=== PATIENT | male | born 1950 | race Native Hawaiian/Other Pacific Islander ===

== ENCOUNTER 2020-06-09 06:49 | Observation (INO) ==
[2020-06-09] MEDS ORDERED: STAT IV Infusion **Titration per Protocol STA (07:02)
[2020-06-09] MEDS ORDERED: MAGNESIUM SULFATE / D5W 1 GM/100 ML BAG IV STA (07:07)
--- NOTE | 2020-06-09 07:13 | Emergency Department Note ---
History of Present Illness General Chief complaint: Hypertension Stated complaint: HIGH BP,TINGLING ARMS Time Seen by Provider: 06/09/20 06:59 Source: patient, family (), RN notes reviewed and old records reviewed Mode of arrival: ambulatory Limitations: no limitations History of Present Illness Provider complaint: left sided weakness, numbness and tingling Onset (ago): hour(s) 2 Location: upper extremity, lower extremity and left Radiation: non-radiation Severity: moderate Pain Consistency: + intermittent Maximum Pain Intensity: 7 Current Pain Intensity: 7 Quality: + aching Relieved By: + immobilization Exacerbated By: + movement Associated symptoms: + denies other symptoms; no fever/chills, no nausea/vomiting and no shortness of breath Treatments prior to arrival: none This 69-year-old male who presents the emergency department after waking his up and telling her that he did not feel good. The patient is complaining of bilateral foot numbness and tingling to his shoulders. He also feels that the left side of his body is weak. He did take his blood pressure medication this morning. Home Medications Medication Instructions Recorded Confirmed Type ascorbic acid (vitamin C) 500 mg 1,000 mg PO DAILY cap 07/19/19 06/09/20 History capsule aspirin 81 mg tablet,delayed 81 mg PO DAILY 07/19/19 06/09/20 History release loratadine 10 mg capsule 10 mg PO DAILY 07/19/19 06/09/20 History multivitamin 1 tab PO DAILY 07/19/19 06/09/20 History omega-3 fatty acids 1,000 mg 1,000 mg PO DAILY 07/19/19 06/09/20 History capsule omeprazole 20 mg tablet,delayed 20 mg PO DAILY 07/19/19 06/09/20 History release vitamin E mixed 1,000 unit capsule 1,000 units PO DAILY 07/22/19 06/09/20 History calcium carbonate 600 mg calcium 600 mg PO 4XWK tab 11/17/19 06/09/20 History (1,500 mg) tablet cholecalciferol (vitamin D3) 50 2,000 units PO DAILY tab 11/17/19 06/09/20 History mcg (2,000 unit) tablet gabapentin 100 mg capsule 100 mg PO BID cap 11/17/19 06/09/20 History metoprolol tartrate 25 mg tablet 12.5 mg PO BID 11/17/19 06/09/20 History vitamin B complex 1 cap PO 3XWK cap 11/17/19 06/09/20 History azelastine 137 mcg (0.1 %) nasal 2 spray INTNAS BID #30 ml 11/18/19 06/09/20 Rx spray aerosol fluticasone propionate 50 2 spray INTRANASAL DAILY #15.8 ml 02/22/20 06/09/20 Rx mcg/actuation nasal spray,suspension atorvastatin 40 mg PO PM #30 tab 06/09/20 Rx diclofenac sodium 2 g TOPICAL QID #100 g 06/09/20 Rx Allergies Allergy/AdvReac Type Severity Reaction Status Date / Time No Known Drug Allergies Allergy Unknown Verified 06/09/20 07:41 pollen extracts Allergy Verified 06/09/20 07:41 Past Med/Surg History Medical History (Updated 06/11/20 @ 07:40 by Kevan Mattson MD) SNHL (sensorineural hearing loss) Tinnitus Surgical History History of hernia surgery History of knee replacement History of vasectomy Family History Father Diabetes Mother Stroke History of heart bypass surgery Diabetes Liver disease Kidney disease Congestive heart failure Hypertension Heart disease Sister Family history of uterine cancer Breast cancer Rheumatoid arthritis Grandmother (Maternal) Colorectal cancer Grandfather (Maternal) Dementia Grandmother (Paternal) Breast cancer Lung cancer Grandfather (Paternal) Lung cancer Brain tumor Social History Smoking Status: Former smoker Hx Alcohol Use: Yes Alcohol type: beer Hx Substance Use: No Preferred Language: Greek Communication Ability: Effective Cell Changer Required: No Beliefs That Will Affect Care: None Current Living Situation: Significant Other current occupational status: retired Other Information That Helps Us Care for You: No Feels Safe at Home: Yes Safety Concerns: Feels Safe At This Time Assistive Devices: Glasses and Hearing Aid - Bilateral Review of Systems A total of 10 systems reviewed and were otherwise negative Physical Exam Vital Signs Vital Signs - 24 hr 06/09/20 06:52 Temperature 36.7 C Temperature Source Oral Pulse Rate 81 Respiratory Rate 20 Respiratory Effort / Characteristics Non-Labored Spontaneous Respiratory Depth Normal Respiratory Pattern Regular Blood Pressure 199/117 H Blood Pressure Mean 144 Blood Pressure Position Sitting Pulse Oximetry 94 Oxygen Delivery Method Room Air Sepsis Recent Fever Within 48 Hours No Sepsis New/Unexplained Change in Mental Status N/A Sepsis Action Taken by Nursing No Action Required VITAL SIGNS - Vital signs and nursing notes were reviewed. GENERAL - 69-year-old male appearing stated age who is in no acute distress. Communicates well with provider and answers questions appropriately. SKIN - Without rashes. HEAD - NC/AT. EYES - PERRL with EOMI bilaterally. Sclera anicteric. Palpebral conjunctiva pink and moist with no injection noted. EARS - No deformities of external structures noted on gross examination bi laterally. No pain elicited with palpation of the tragus bilaterally. External auditory canals without discharge or otorrhea. Tympanic membranes pearly gamez without retraction or bulging. No fluid or purulent material visualized behind the TM. Handle of malleus, umbo, cone of light, pars tensa/flaccid all easily visualized. NOSE - Midline and without cyanosis. No epistaxis or purulent drainage noted. Septum midline without deviation or septal hematoma noted. MOUTH/OROPHARYNX - Without perioral cyanosis. Buccal mucosa pink and moist and without leukoplakia. Tongue midline with equal elevation of palate bilaterally. No tonsillar hypertrophy, erythema, or exudates noted. dentition noted. NECK - Neck with FROM. Supple to palpation. lymphadenopathy noted. No nuchal rigidity. LUNGS - Chest wall symmetric without accessory muscle use, intercostals retractions, or central cyanosis. Normal vesicular breath sounds CTA B/L. No wheezes, rales, or rhonchi appreciated. CARDIAC - RRR with S1/S2. No murmur, rubs, or gallops appreciated. ABDOMEN - Abdominal contour without pulsations or visible masses. BS normoactive all four quadrants. No tenderness, palpable masses, hepatosplenomegaly, or ascites noted. EXTREMITIES - No clubbing or peripheral cyanosis. No pretibial edema present. +3/5 radial, posterior tibial, and dorsalis pedis pulses palpated throughout. +5/5 strength noted in UE/LE bilaterally. NEUROLOGIC - Cranial nerves II through XII grossly intact. Sensory intact to light touch throughout. Patellar reflexes +2/4. PSYCH - A&Ox3 and cooperates fully with examiner. Pt is very pleasant and interacts well with examiner. Course Administered Medications Discontinued Medications Atorvastatin Calcium (Atorvastatin 20 Mg Tab) 20 mg PO QDD DANIEL Stop: 07/09/20 16:29 Last Admin: 06/09/20 16:24 Dose: 20 mg Documented by: [id number] Nicardipine HCl 25 mg/ Sodium (Chloride) 250 mls @ 0 mls/hr IV .Q0M DANIEL; Protocol Stop: 07/09/20 07:14 Last Titration: 06/09/20 11:14 Dose: 0 mg/hr, 0 mls/hr Documented by: [id number] Titration: 06/09/20 08:53 Dose: 0 mg/hr, 0 mls/hr Documented by: [id number] Admin: 06/09/20 07:36 Dose: 5 mg/hr, 50 mls/hr Documented by: [id number] Cosigned by: [id number] Magnesium Sulfate/Dextrose (Magnesium Sulfate / D5w) 1 gm in 100 mls @ 100 mls/hr IV NOW STA Stop: 06/09/20 08:06 Last Infusion: 06/09/20 08:55 Dose: 0 mls/hr Documented by: [id number] Admin: 06/09/20 07:37 Dose: 100 mls/hr Documented by: [id number] Miscellaneous (Stat Iv Infusion Titration Per Protocol) 1 ea N/A NOW STA Stop: 06/09/20 07:03 Last Admin: 06/09/20 09:22 Dose: Not Given Documented by: [id number] Miscellaneous (Astelin - Order Awaiting Action) 1 ea N/A QS DANIEL Stop: 07/09/20 15:59 Last Admin: 06/09/20 15:29 Dose: Not Given Documented by: [id number] Critical Care Time I have personally spent greater than 30 minutes of critical care time in the direct management of this patient. This includes bedside care, interpretation of diagnostic studies, and testing, discussion with consultants, patient, and family members, and other required patient management activities. This 30 minutes is in excess of all separately billable procedures. Medical Decision Making Differential Diagnosis Infection, dehydration, metabolic abnormality, hypo/hyperglycemia, electrolyte disturbance, anemia, hypoxia, cardiac sources, intracerebral event, toxicologic, neurologic, as well as other pathologies. Medical Records Attestation: I reviewed the patient's medical records. Home Medications Current Medication List: was personally reviewed by me Laboratory Data Attestation: I reviewed the patient's lab results. Result diagrams: 06/09/20 07:21 06/09/20 07:21 Lab Results 06/09/20 06/09/20 06/09/20 Range/Units 07:21 07:21 07:21 WBC 6.42 (4.8-10.8) K/uL RBC 4.80 (4.7-6.1) M/uL Hgb 16.1 (14.0-18.0) g/dL Hct 46.3 (42-52) % MCV 96.5 (80-100) fL MCH 33.5 (25-34) pg MCHC 34.8 (32-36) g/dL RDW Std Deviation 45.5 (36.4-46.3) fL RDW Coeff of Robby 13.0 (11.5-14.5) % Plt Count 191 (130-400) K/uL MPV 11.7 H (7.4-10.4) fL Immature Gran % (Auto) 0.2 % Neut % (Auto) 51.8 % Lymph % (Auto) 34.6 % [place] % (Auto) 8.7 % Eos % (Auto) 4.2 % Baso % (Auto) 0.5 % Neut # (Auto) 3.33 (1.4-6.5) K/uL Lymph # (Auto) 2.22 (1.2-3.4) K/uL [place] # (Auto) 0.56 (0.11-0.59) K/uL Eos # (Auto) 0.27 (0-0.5) K/uL Baso # (Auto) 0.03 (0-0.2) K/uL Immature Gran # (Auto) 0.01 (0.00-0.02) K/uL PT 11.5 (9.0-12.0) Seconds INR 1.1 (0.9-1.1) APTT 26.9 (21.0-31.0) Seconds PTT Ratio 1.0 Sodium 137 (136-145) mmol/L Potassium 3.9 (3.5-5.1) mmol/L Chloride 104 (98-107) mmol/L Carbon Dioxide 27 (21-32) mmol/L Anion Gap 6.0 (3-11) BUN 16 (7-18) mg/dl Creatinine 1.12 (0.6-1.4) mg/dl Est Cr Clr Drug Dosing 64.6 ml/min Est GFR ( Amer) 76.7 Est GFR (Non-Af Amer) 66.2 BUN/Creatinine Ratio 13.8 (10-20) Glucose 123 H (70-99) mg/dl POC Glucose (70-99) mg/dl Calcium 9.1 (8.5-10.1) mg/dl Magnesium 1.9 (1.8-2.4) mg/dl Total Bilirubin 0.4 (0.2-1) mg/dl AST 31 (15-37) U/L ALT 29 (12-78) U/L Alkaline Phosphatase 98 (45-117) U/L Troponin I < 0.015 (0-0.045) ng/ml Total Protein 7.3 (6.4-8.2) gm/dl Albumin 4.1 (3.4-5.0) gm/dl Globulin 3.2 (2.5-4.0) gm/dl Albumin/Globulin Ratio 1.3 (0.9-2) Urine Color Urine Appearance (Clear) Urine pH (4.5-7.5) Ur Specific [place] (1.000-1.030) Urine Protein (Negative) Urine Glucose (UA) (Negative) Urine Ketones (Negative) Urine Blood (Negative) Urine Nitrite (Negative) Urine Bilirubin (Negative) Urine Urobilinogen (Negative) Ur Leukocyte Esterase (Negative) 06/09/20 06/09/20 Range/Units 07:25 07:55 WBC (4.8-10.8) K/uL RBC (4.7-6.1) M/uL Hgb (14.0-18.0) g/dL Hct (42-52) % MCV (80-100) fL MCH (25-34) pg MCHC (32-36) g/dL RDW Std Deviation (36.4-46.3) fL RDW Coeff of Robby (11.5-14.5) % Plt Count (130-400) K/uL MPV (7.4-10.4) fL Immature Gran % (Auto) % Neut % (Auto) % Lymph % (Auto) % [place] % (Auto) % Eos % (Auto) % Baso % (Auto) % Neut # (Auto) (1.4-6.5) K/uL Lymph # (Auto) (1.2-3.4) K/uL [place] # (Auto) (0.11-0.59) K/uL Eos # (Auto) (0-0.5) K/uL Baso # (Auto) (0-0.2) K/uL Immature Gran # (Auto) (0.00-0.02) K/uL PT (9.0-12.0) Seconds INR (0.9-1.1) APTT (21.0-31.0) Seconds PTT Ratio Sodium (136-145) mmol/L Potassium (3.5-5.1) mmol/L Chloride (98-107) mmol/L Carbon Dioxide (21-32) mmol/L Anion Gap (3-11) BUN (7-18) mg/dl Creatinine (0.6-1.4) mg/dl Est Cr Clr Drug Dosing ml/min Est GFR ( Amer) Est GFR (Non-Af Amer) BUN/Creatinine Ratio (10-20) Glucose (70-99) mg/dl POC Glucose 121 H (70-99) mg/dl Calcium (8.5-10.1) mg/dl Magnesium (1.8-2.4) mg/dl Total Bilirubin (0.2-1) mg/dl AST (15-37) U/L ALT (12-78) U/L Alkaline Phosphatase (45-117) U/L Troponin I (0-0.045) ng/ml Total Protein (6.4-8.2) gm/dl Albumin (3.4-5.0) gm/dl Globulin (2.5-4.0) gm/dl Albumin/Globulin Ratio (0.9-2) Urine Color Yellow Urine Appearance Clear (Clear) Urine pH 7.5 (4.5-7.5) Ur Specific [place] 1.029 (1.000-1.030) Urine Protein Negative (Negative) Urine Glucose (UA) Negative (Negative) Urine Ketones Negative (Negative) Urine Blood Negative (Negative) Urine Nitrite Negative (Negative) Urine Bilirubin Negative (Negative) Urine Urobilinogen Negative (Negative) Ur Leukocyte Esterase Negative (Negative) Imaging Data Radiologist's Impression: [facility], [phone] Magnetic Resonance Report Patient: AMERICA,STEPHENAdmit Date: 06/09/20MR#: [id number]: [id number] [facility] [facility]:[id number]: Date: 1950[facility] Zip: [place] [address]Wea: 69Location: EDSex: MRoom/Bed:Att Phy:Diagnosis: HIGH BP,TINGLING ARMSPri Phy: Ab Chandler M.D.Service Date: 06/09/20Fa Phy: Cindy Salvador M.D.Interpreting Phy: Moses AshrafAdmit Phy: Ordering Phy: Kevan Mattson MD cc: ~ MR brain wo con HISTORY: 69 years-old Male Pt c/o tingling left side of body acute strokelike symptoms COMPARISON: Head CT, CTA head neck of same day TECHNIQUE: Multiplanar multisequence MRI of the brain was obtained without the use of IV contrast. FINDINGS: Braiding Machine Tender localizer images demonstrate no gross extracranial abnormality. There is no restricted diffusion to suggest acute or subacute infarct. Midline structures including the corpus callosum, brainstem, optic chiasm, pituitary and pineal glands appear unremarkable the sagittal T1 series. No cerebellar tonsillar herniation. Degenerative changes are noted involving the imaged cervical spine. No pathologic blooming artifact on the T2 star series. There is no acute intracranial hemorrhage, midline shift, abnormal extra-axial collection, hydrocephalus or intracranial mass. Age-related involutional changes. Moderate T2/FLAIR hyperintensities are noted throughout the white matter. Major arterial flow voids at the level the skull base appear patent. Mastoid air cells are clear. Minimal mucosal thickening of the ethmoid air cells. The skull, orbits and soft tissues are unremarkable. IMPRESSION: 1. No acute intracranial abnormality, specifically there is no evidence of acute or subacute infarct. 2. Age-related involutional changes with moderate T2/FLAIR white matter hyperintensities suggestive of chronic microvascular ischemic disease. ACT 112: Negative or not required by law. The above report was generated using voice recognition software. It may contain grammatical, syntax or spelling errors. Electronically signed by: Jacques Ashraf M.D. 06/09/2020 11:11 AM Dictated: 06/09/20 1106Transcribed: 06/09/20 1107 [facility], [phone] XRay Report Patient: AUGIE CROSSAdmit Date: 06/09/20MR#: [id number]: [id number] [facility] RDAcct ID:[id number]: Date: 1950[facility] Zip: [place], [place] [address]Hva: 69Location: EDSex: MRoom/Bed:Att Phy:Diagnosis: HIGH BP,TINGLING ARMSPri Phy: Ab Chandler M.D.Service Date: 06/09/20Fa Phy: Cindy Salvador M.D.Interpreting Phy: Moses AshrafAdmit Phy: Ordering Phy: Kevan Mattson MD cc: ~ XR chest 1V portable HISTORY: 69 years-old Male Pt c/o left sided weakness acute left-sided weakness COMPARISON: CTA head neck of same day TECHNIQUE: Portable AP view of the chest FINDINGS: Cardiomediastinal and hilar silhouettes are within normal limits. No pneumotho rax, pleural effusion, airspace consolidation or overt pulmonary edema. Minimal linear subsegmental bibasilar atelectasis. Degenerative changes of the shoulders and spine. Calcified plaque of the carotid bulbs. IMPRESSION: No acute process. ACT 112: Negative or not required by law. The above report was generated using voice recognition software. It may contain grammatical, syntax or spelling errors. Electronically signed by: Jacques Ashraf M.D. 06/09/2020 8:17 AM Dictated: 06/09/20 08Transcribed: 06/09/20 0816 [facility], [phone] CT Scan Report Patient: AUGIE CROSSAdmit Date: 06/09/20MR#: [id number]: [id number] [facility] RDAcct ID:[id number]: Date: 1950 Zip: [place], [place] [address]Eln: 69Location: EDSex: MRoom/Bed:Att Phy:Diagnosis: HIGH BP,TINGLING ARMSPri Phy: Ab Chandler M.D.Service Date: 06/09/20Fa Phy: Cindy Salvador M.D.Interpreting Phy: Moses AshrafAdmit Phy: Ordering Phy: Kevan Mattson MD cc: ~ CT angio neck with con, CT angio head w con CLINICAL HISTORY: 69 years-old Male with Stroke evaluation. Acute strokelike symptoms COMPARISON STUDY: Head CT of same day TECHNIQUE: Following the IV administration of 120 mL of Optiray 320, CT angiogram of the head and neck was performed from the aortic arch to the skull apex. Images are reviewed in the axial, sagittal, and coronal planes. 3-D MIPS images are created and assessed. IV contrast was administered without complication. All measurements were calculated based on NASCET criteria. A dose lowering technique was utilized adhering to the principles of ALARA. CT DOSE: 1235.31 mGy.cm FINDINGS: Imaged opacified pulmonary arterial tree is unremarkable. Mild mixed plaque of the thoracic aortic arch and proximal great vessels. The innominate and imaged subclavian arteries are patent. Bovine morphology of the thoracic aortic arch. Common carotid arteries are widely patent. Mild mixed plaque of the carotid bulbs and proximal internal carotid arteries results in less than 50% stenosis. The middle and anterior cerebral arteries are widely patent. Dominant left vertebral artery. Calcified plaque at the origin of the right vertebral artery without high-grade stenosis. 60% luminal narrowing of the V2 segment right vertebral artery at the level of C6, image 226 of series 6 secondary to uncovertebral spurring. Patent basilar artery. origin of the right posterior cerebral artery. Patent posterior cerebral arteries. No aneurysm, dissection, high-grade stenosis or proximal branch occlusion. Cerebral venous sinuses are patent. Hypoplastic right transverse sinus. There is no abnormal intracranial enhancement. The lung apices are clear without pneumothorax. Nonspecific prominent lymph nodes of the mediastinum measure up to 9 mm. Unremarkable thyroid. No acute fracture. Multilevel degenerative changes of the cervical spine. IMPRESSION: 1. 60% luminal narrowing involves the V2 segment right vertebral artery at the level of C6 secondary to uncovertebral spurring. 2. origin of the right posterior cerebral artery. 3. Mild mixed plaque of the carotid bulbs results in less than 50% luminal narrowing. 4. Otherwise unremarkable CTA of the head and neck. ACT 112: Negative or not required by law. The above report was generated using voice recognition software. It may contain grammatical, syntax or spelling errors. Electronically signed by: Jacques Ashraf M.D. 06/09/2020 8:16 AM Dictated: 06/09/20804Transcribed: 06/09/20804 [facility], [phone] CT Scan Report Patient: AUGIE CROSSAdmit Date: 06/09/20MR#: [id number]: [id number] [address] RDAcct ID:[id number]: Date: 1950City Zip: [place] [address]Fql: 69Location: EDSex: MRoom/Bed:Att Phy:Diagnosis: HIGH BP,TINGLING ARMSPri Phy: Ab Chandler M.D.Service Date: 06/09/20Fa Phy: Cindy Salvador M.D.Interpreting Phy: Moses AshrafAdmit Phy: Ordering Phy: Kevan Mattson MD cc: ~ CT angio neck with con, CT angio head w con CLINICAL HISTORY: 69 years-old Male with Stroke evaluation. Acute strokelike symptoms COMPARISON STUDY: Head CT of same day TECHNIQUE: Following the IV administration of 120 mL of Optiray 320, CT angiogram of the head and neck was performed from the aortic arch to the skull apex. Images are reviewed in the axial, sagittal, and coronal planes. 3-D MIPS images are created and assessed. IV contrast was administered without complication. All measurements were calculated based on NASCET criteria. A dose lowering technique was utilized adhering to the principles of ALARA. CT DOSE: 1235.31 mGy.cm FINDINGS: Imaged opacified pulmonary arterial tree is unremarkable. Mild mixed plaque of t he thoracic aortic arch and proximal great vessels. The innominate and imaged subclavian arteries are patent. Bovine morphology of the thoracic aortic arch. Common carotid arteries are widely patent. Mild mixed plaque of the carotid bulbs and proximal internal carotid arteries results in less than 50% stenosis. The middle and anterior cerebral arteries are widely patent. Dominant left vertebral artery. Calcified plaque at the origin of the right vertebral artery without high-grade stenosis. 60% luminal narrowing of the V2 segment right vertebral artery at the level of C6, image 226 of series 6 secondary to uncovertebral spurring. Patent basilar artery. origin of the right posterior cerebral artery. Patent posterior cerebral arteries. No aneurysm, dissection, high-grade stenosis or proximal branch occlusion. Cerebral venous sinuses are patent. Hypoplastic right transverse sinus. There is no abnormal intracranial enhancement. The lung apices are clear without pneumothorax. Nonspecific prominent lymph nodes of the mediastinum measure up to 9 mm. Unremarkable thyroid. No acute fra cture. Multilevel degenerative changes of the cervical spine. IMPRESSION: 1. 60% luminal narrowing involves the V2 segment right vertebral artery at the level of C6 secondary to uncovertebral spurring. 2. origin of the right posterior cerebral artery. 3. Mild mixed plaque of the carotid bulbs results in less than 50% luminal narrowing. 4. Otherwise unremarkable CTA of the head and neck. ACT 112: Negative or not required by law. The above report was generated using voice recognition software. It may contain grammatical, syntax or spelling errors. Electronically signed by: Jacques Ashraf M.D. 06/09/2020 8:16 AM Dictated: 06/09/20 08Transcribed: 06/09/20804 [facility], [phone] CT Scan Report Patient: AUGIE CROSSAdmit Date: 06/09/20#: [id number]: [id number] [address] RDAcct ID:[id number]: Date: 1950[facility] Zip: [place], [place] [address]Tnd: 69Location: EDSex: MRoom/Bed:Att Phy:Diagnosis: HIGH BP,TINGLING ARMSPri Phy: Ab Chandler M.D.Service Date: 06/09/20Fa Phy: Cindy Salvador M.D.Interpreting Phy: Moses AshrafAdmit Phy: Ordering Phy: Kevan Mattson MD cc: ~ CT head/brain wo con CLINICAL HISTORY: 69 years-old Male with Stroke evaluation . Acute strokelike symptoms TECHNIQUE: Multiple axial CT images of the head were obtained without contrast. A dose lowering technique was utilized adhering to the principles of ALARA. COMPARISON: CTA head and neck of same day FINDINGS: No acute intracranial hemorrhage, midline shift, intracranial mass, hydrocephalus, territorial ischemia or abnormal extra-axial collection. Senescent calcifications of the lentiform nuclei. Age-related involutional changes with patchy white matter hypodensity suggestive of chronic microvascular ischemic disease. Cerebral vascular calcifications. The calvarium is intact. The paranasal sinuses, mastoid air cells, and middle ear cavities are clear. IMPRESSION: No acute intracranial abnormality. ACT 112: Negative or not required by law. The above report was generated using voice recognition software. It may contain grammatical, syntax or spelling errors. Electronically signed by: Jacques Ashraf M.D. 06/09/2020 8:05 AM Dictated: 06/09/20801Transcribed: 06/09/20801 [facility] Narrative Patient was seen and evaluated as above in room B1. Review was performed of nursing notes and vital signs. I did review pertinent previous visits and patient history. After obtaining a thorough history and physical examination the above work up was performed. This is a 69-year-old male who presents hypertensive to the emergency department with what he feels a subjective left-sided weakness along with numbness and tingling. Stroke alert was immediately initiated. Because of the patient's hypotension here in the emergency department he was immediately sent for a CAT scan of the head as well as CTA of the head and neck. This does not show any acute findings. Patient was placed on a nicardipine drip. Due to the drip anand ent was then discussed with the hospitalist service who immediately admitted the patient. Patient and family are in agreement with treatment plan. An order was placed for continuous cardiac monitoring. The monitor shows a rate of 81 with Normal SInus rhythm. The patient was evaluated during the global COVID-19 pandemic, and that diagnosis was suspected/considered upon their initial presentation. Their evaluation, treatment and testing was consistent with current guidelines for patients who present with complaints or symptoms that may be related to COVID- 19. Impression & Plan Hypertensive crisis Discharge Plan Visit Data Chief Complaint: Hypertension Stated Complaint: HIGH BP,TINGLING ARMS ED Provider: Kevan Mattson Discharge Problem: Hypertensive crisis Patient Disposition: Admitted As Inpatient Discharge Instructions Interventions: ED Discharge Assessment Last Done: 06/09/20 11:56
[2020-06-09] MEDS ORDERED: niCARdipine 25 MG in SODIUM CHLORIDE 0.9% 240 ML IV SCH (07:15)
[2020-06-09 07:33] LABS: Basophils # (auto) 0.03 K/uL (0-0.2); Basophils % (auto) 0.5 %; Eosinophils # (auto) 0.27 K/uL (0-0.5); Eosinophils % (auto) 4.2 %; Hematocrit (blood only) 46.3 % (42-52); Hemoglobin 16.1 g/dL (14.0-18.0); Immature Granulocytes # (auto) 0.01 K/uL (0.00-0.02); Immature Granulocytes % (auto) 0.2 %; Lymphocytes # (auto) 2.22 K/uL (1.2-3.4); Lymphocytes % (auto) 34.6 %; Mean Corpuscular Hemoglobin 33.5 pg (25-34); Mean Corpuscular Hgb Conc 34.8 g/dL (32-36); Mean Corpuscular Volume 96.5 fL (80-100); Mean Platelet Volume 11.7 fL (7.4-10.4); Monocytes # (auto) 0.56 K/uL (0.11-0.59); Monocytes % (auto) 8.7 %; Neutrophils # (auto) 3.33 K/uL (1.4-6.5); Neutrophils % (auto) 51.8 %; Platelet Count 191 K/uL (130-400); RDW Standard Deviation 45.5 fL (36.4-46.3); White Blood Count 6.42 K/uL (4.8-10.8)
[2020-06-09 07:47] LABS: INR 1.1 (0.9-1.1); Partial Thromboplastin Time 26.9 Seconds (21.0-31.0); Prothrombin Time 11.5 Seconds (9.0-12.0)
[2020-06-09 07:49] LABS: Alanine Aminotransferase 29 U/L (12-78); Albumin Level 4.1 gm/dl (3.4-5.0); Aspartate Aminotransferase 31 U/L (15-37); BUN Creatinine Ratio 13.8 (10-20); Blood Urea Nitrogen 16 mg/dl (7-18); Calcium 9.1 mg/dl (8.5-10.1); Carbon Dioxide 27 mmol/L (21-32); Chloride 104 mmol/L (98-107); Creatinine Clr Calc Pharmacy 64.6 ml/min; Est GFR (African American) 76.7; Est GFR (Non-African American) 66.2; Glucose 123 mg/dl (70-99); Magnesium 1.9 mg/dl (1.8-2.4); Potassium 3.9 mmol/L (3.5-5.1); Sodium 137 mmol/L (136-145)
[2020-06-09 07:54] LABS: Albumin Globulin Ratio 1.3 (0.9-2); Alkaline Phosphatase 98 U/L (45-117); Bilirubin,Total 0.4 mg/dl (0.2-1); Globulin 3.2 gm/dl (2.5-4.0); Total Protein 7.3 gm/dl (6.4-8.2); Troponin I < 0.015 ng/ml (0-0.045)
--- NOTE | 2020-06-09 08:06 | CT Scan Report ---
CT head/brain wo con CLINICAL HISTORY: 69 years-old Male with Stroke evaluation . Acute strokelike symptoms TECHNIQUE: Multiple axial CT images of the head were obtained without contrast. A dose lowering tech nique was utilized adhering to the principles of ALARA. COMPARISON: CTA head and neck of same day FINDINGS: No acute intracranial hemorrhage, midline shift, intracranial mass, hydrocephalus, territorial ischem ia or abnormal extra-axial collection. Senescent calcifications of the lentiform nuclei. Age-related involutional changes with patchy white matter hypodensity suggestive of chronic microvascular ischemi c disease. Cerebral vascular calcifications. The calvarium is intact. The paranasal sinuses, mastoid air cells, and middle ear cavities are clear . IMPRESSION: No acute intracranial abnormality. ACT 112: Negative or not required by law. The above report was generated using voice recognition software. It may contain grammatical, syntax o r spelling errors. Electronically signed by: Jacques Ashraf M.D. 06/09/2020 8:05 AM
--- NOTE | 2020-06-09 08:17 | CT Scan Report ---
CT angio neck with con, CT angio head w con CLINICAL HISTORY: 69 years-old Male with Stroke evaluation. Acute strokelike symptoms COMPARISON STUDY: Head CT of same day TECHNIQUE: Following the IV administration of 120 mL of Optiray 320, CT angiogram of the head and nec k was performed from the aortic arch to the skull apex. Images are reviewed in the axial, sagittal, a nd coronal planes. 3-D MIPS images are created and assessed. IV contrast was administered without com plication. All measurements were calculated based on NASCET criteria. A dose lowering technique was utilized adhering to the principles of ALARA. CT DOSE: 1235.31 mGy.cm FINDINGS: Imaged opacified pulmonary arterial tree is unremarkable. Mild mixed plaque of the thoracic aortic ar ch and proximal great vessels. The innominate and imaged subclavian arteries are patent. Bovine morph ology of the thoracic aortic arch. Common carotid arteries are widely patent. Mild mixed plaque of th e carotid bulbs and proximal internal carotid arteries results in less than 50% stenosis. The middle and anterior cerebral arteries are widely patent. Dominant left vertebral artery. Calcified plaque at the origin of the right vertebral artery without high-grade stenosis. 60% luminal narrowing of the V 2 segment right vertebral artery at the level of C6, image 226 of series 6 secondary to uncovertebral spurring. Patent basilar artery. origin of the right posterior cerebral artery. Patent posteri or cerebral arteries. No aneurysm, dissection, high-grade stenosis or proximal branch occlusion. Cere bral venous sinuses are patent. Hypoplastic right transverse sinus. There is no abnormal intracranial enhancement. The lung apices are clear without pneumothorax. Nonspecific prominent lymph nodes of the mediastinum measure up to 9 mm. Unremarkable thyroid. No acute fracture. Multilevel degenerative changes of the c ervical spine. IMPRESSION: 1. 60% luminal narrowing involves the V2 segment right vertebral artery at the level of C6 secondary to uncovertebral spurring. 2. origin of the right posterior cerebral artery. 3. Mild mixed plaque of the carotid bulbs results in less than 50% luminal narrowing. 4. Otherwise unremarkable CTA of the head and neck. ACT 112: Negative or not required by law. The above report was generated using voice recognition software. It may contain grammatical, syntax o r spelling errors. Electronically signed by: Jacques Ashraf M.D. 06/09/2020 8:16 AM
--- NOTE | 2020-06-09 08:18 | XRay Report ---
XR chest 1V portable HISTORY: 69 years-old Male Pt c/o left sided weakness acute left-sided weakness COMPARISON: CTA head neck of same day TECHNIQUE: Portable AP view of the chest FINDINGS: Cardiomediastinal and hilar silhouettes are within normal limits. No pneumothorax, pleural effusion, airspace consolidation or overt pulmonary edema. Minimal linear subsegmental bibasilar atelectasis. D egenerative changes of the shoulders and spine. Calcified plaque of the carotid bulbs. IMPRESSION: No acute process. ACT 112: Negative or not required by law. The above report was generated using voice recognition software. It may contain grammatical, syntax o r spelling errors. Electronically signed by: Jacques Ashraf M.D. 06/09/2020 8:17 AM
--- NOTE | 2020-06-09 09:49 | Electrocardiogram Report ---
Test Reason : Blood Pressure : / mmHG Vent. Rate : 083 BPM Atrial Rate : 083 BPM P-R Int : 212 ms QRS Dur : 116 ms QT Int : 406 ms P-R-T Axes : 055 000 001 degrees QTc Int : 477 ms Sinus rhythm with 1st degree A-V block Left atrial enlargement Incomplete right bundle branch block Minor Nonspecific T wave abnormality Anterolateral leads Abnormal ECG No previous ECGs available Confirmed by Stewart Still ([id number]) on 06/09/2020 9:49:19 AM Referred By: REFERRED SELF Confirmed By:Stewart Still
--- NOTE | 2020-06-09 10:12 | History & Physical Report ---
Date of Service June 09, 2020 Assessment & Plan (1) Arthritis: Jose Pedersen is a 69-year-old gentleman with a past medical history of hypertension, hyperlipidemia, peripheral neuropathy, and osteoarthritis who came into the ED this morning due to generally not feeling good and high blood pressure. He also complained of tingling in left arm. Admitted for TIA/stroke rule-out on 06/09. TIA/Stroke - Given patient's complaints of arm tingling and generalized sluggishness, stroke work-up ordered - EKG: Sinus rhythm with 1st degree AV block, incomplete RBBB - Head CT negative - Head/Neck CTA: 1. 60% luminal narrowing involves the V2 segment right vertebral artery at the level of C6 secondary to uncovertebral spurring. 2. origin of the right posterior cerebral artery. 3. Mild mixed plaque of the carotid bulbs results in less than 50% luminal narrowing. 4. Otherwise unremarkable CTA of the head and neck. 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 - Recommend use of diclofenac gel QID to decrease amount of ibuprofen patient takes daily - Will observe and await Brain MRI to fully rule out stroke Hypertension - Likely patient's BP spikes were secondary to pain - Would consider changing patient's metoprolol tartrate 12.5mg PO BID to metoprolol succinate, or possibly even change altogether to an EMMANUEL inhibitor for better heart attack/stroke risk reduction given signs of microvascular disease on Brain MRI--can be done as outpatient Hyperlipidemia - Patient on atorvastatin 20mg daily at home - Will increase to 40mg daily for better stroke/heart attack risk reduction Peripheral neuropathy - Baseline peripheral neuropathy in bilateral lower extremities - No weakness or gait abnormalities GERD - Continue omeprazole 20mg PO daily FENGI: Heart healthy DVT ppx: No pharmacoprophylaxis ordered due to eval for stroke Dispo: PCU/telemetry Code: Full Code (2) Hypertension: (3) Hyperlipidemia: (4) Peripheral neuropathy: History of Present Illness Chief Complaint: Hypertension, tingling arm Primary Care Provider: Ab Chandler Jose Pedersen is a 69-year-old gentleman with a past medical history of hypertension, hyperlipidemia, peripheral neuropathy, and osteoarthritis who came into the ED this morning due to generally not feeling good and high blood pressure. He explains that around 4:30AM this morning he woke up due to increased pain in his shoulders--he has pain in shoulders at baseline but felt it was worse. He notes that he felt sluggish, had tingling over the top of his arm, and "didn't feel right". He decided to take his BP and found it to be 165/109. He waited a few minutes and took it again, at which point it was 181/110. He then decided to head to the ED. When asked about the numbness in his arm he explains that it is only over the top of his arm down to his forearm but does not involve the hand or fingers. As above, he does have arthritis, which he treats with OTC ibuprofen (up to 6 pills per day)--he complains of pain at baseline in multiple joints including shoulders, knees, hands. Says lately it has been worse due to the cold, damp weather. He denies vision changes, weakness of the face, slurred speech, weakness of his arms or legs, CP, palpitations, SOB, cough, n/v, diarrhea, constipation, abd pain, urinary symptoms. Allergies Allergy/AdvReac Type Severity Reaction Status Date / Time No Known Drug Allergies Allergy Unknown Verified 06/09/20 07:41 pollen extracts Allergy Verified 06/09/20 07:41 Home Medications Medication Instructions Recorded Confirmed Type ascorbic acid (vitamin C) 500 mg 1,000 mg PO DAILY cap 07/19/19 06/09/20 History capsule aspirin 81 mg tablet,delayed 81 mg PO DAILY 07/19/19 06/09/20 History release loratadine 10 mg capsule 10 mg PO DAILY 07/19/19 06/09/20 History multivitamin 1 tab PO DAILY 07/19/19 06/09/20 History omega-3 fatty acids 1,000 mg 1,000 mg PO DAILY 07/19/19 06/09/20 History capsule omeprazole 20 mg tablet,delayed 20 mg PO DAILY 07/19/19 06/09/20 History release vitamin E mixed 1,000 unit capsule 1,000 units PO DAILY 07/22/19 06/09/20 History calcium carbonate 600 mg calcium 600 mg PO [id number] tab 11/17/19 06/09/20 History (1,500 mg) tablet cholecalciferol (vitamin D3) 50 2,000 units PO DAILY tab 11/17/19 06/09/20 History mcg (2,000 unit) tablet gabapentin 100 mg capsule 100 mg PO BID cap 11/17/19 06/09/20 History metoprolol tartrate 25 mg tablet 12.5 mg PO BID 11/17/19 06/09/20 History vitamin B complex 1 cap PO 3XWK cap 11/17/19 06/09/20 History azelastine 137 mcg (0.1 %) nasal 2 spray INTNAS BID #30 ml 11/18/19 06/09/20 Rx spray aerosol fluticasone propionate 50 2 spray INTRANASAL DAILY #15.8 ml 02/22/20 06/09/20 Rx mcg/actuation nasal spray,suspension atorvastatin 40 mg PO PM #30 tab 06/09/20 Rx diclofenac sodium 2 g TOPICAL QID #100 g 06/09/20 Rx Past Med/Surg History Medical History SNHL (sensorineural hearing loss) Tinnitus Surgical History History of hernia surgery History of knee replacement History of vasectomy Family History Father Diabetes Mother Stroke History of heart bypass surgery Diabetes Liver disease Kidney disease Congestive heart failure Hypertension Heart disease Sister Family history of uterine cancer Breast cancer Rheumatoid arthritis Grandmother (Maternal) Colorectal cancer Grandfather (Maternal) Dementia Grandmother (Paternal) Breast cancer Lung cancer Grandfather (Paternal) Lung cancer Brain tumor Social History Smoking Status: Former smoker Hx Alcohol Use: Yes Alcohol type: beer Hx Substance Use: No Preferred Language: Uzbek Communication Ability: Effective Light Bulb Assembler Required: No Beliefs That Will Affect Care: None Current Living Situation: Significant Other current occupational status: retired Other Information That Helps Us Care for You: No Feels Safe at Home: Yes Safety Concerns: Feels Safe At This Time Assistive Devices: Glasses and Hearing Aid - Bilateral Review of Systems Constitutional: no fever, no chills and no sweats Respiratory: no cough, no chest congestion and no dyspnea Cardiovascular: no chest pain, no palpitations and no edema Gastrointestinal: no abdominal pain, no nausea, no vomiting, no constipation and no diarrhea/loose stools Genitourinary: no dysuria, no difficulty urinating and no urinary frequency Musculoskeletal: + neck pain and + joint pain (shoulders, knees, hands); no muscle weakness Neurologic: + tingling (left arm); no gait abnormality, no unsteadiness, no localized weakness, no generalized weakness, no numbness and no abnormal speech Physical Exam Constitutional: WD/WN, vitals as above no acute distress Respiratory: normal respiratory effort, lungs clear to auscultation Cardiovascular: RRR, no murmur, no edema Heart Sounds: normal S1 and normal S2 Gastrointestinal (Abdomen): normal bowel sounds, soft, nontender, no hepatosplenomegaly Musculoskeletal: no cyanosis or clubbing, extremities motor strength 5/5 Skin: no rashes, warm and dry Neurologic: patellar DTR's 2+ bilat, sensation intact and PERRL, EOMI, accommodation nl, no face palsy, no dysarthria normal touch/pain/proprioception, CN's II-XI intact bilaterally, plantar reflexes intact bilaterally and moves all extremities; no focal motor deficits Speech / Cognition: normal speech Psychiatric: A+Ox3, euthymic affect Results & Data Results & Data ([facility]) Vital Signs (Past 12 Hours) Vital Signs Temp Pulse Pulse Resp BP BP Pulse Ox 06/09/20 09:50 85 15 94 06/09/20 09:45 88 21 151/106 H 95 06/09/20 09:40 83 16 96 06/09/20 09:37 83 17 137/84 93 06/09/20 09:20 78 17 94 06/09/20 09:15 79 18 132/90 93 06/09/20 09:12 79 16 142/89 H 93 06/09/20 09:10 77 18 93 06/09/20 09:00 81 14 148/89 H 93 06/09/20 08:53 85 19 143/89 H 93 06/09/20 08:50 94 H 06/09/20 08:45 81 15 131/85 93 06/09/20 08:40 83 17 93 06/09/20 08:30 86 18 144/81 H 93 06/09/20 08:20 86 12 93 06/09/20 08:16 165/93 H 06/09/20 08:10 85 12 93 06/09/20 08:07 93 H 16 129/102 H 96 06/09/20 08:00 85 95 06/09/20 07:55 92 H 14 168/99 H 94 06/09/20 07:45 87 178/109 H 95 06/09/20 07:43 87 186/120 H 96 06/09/20 07:40 86 06/09/20 07:38 84 193/109 H 06/09/20 07:30 83 98 06/09/20 07:29 83 19 98 06/09/20 07:20 85 96 06/09/20 07:19 88 97 06/09/20 07:17 85 18 193/121 H 193/121 H 97 06/09/20 06:52 36.7 C 81 20 199/117 H 94 Supervising Physician Co-Signing Physician Notes see dc summary for my documentation, thank you Resident Activity Tracking Resident Involvement: Resident Care Provided Care Provided: Adult Hospital Medicine
[2020-06-09 10:39] LABS: Appearance Urine Clear (Clear); Bilirubin Urine Negative (Negative); Blood Urine Negative (Negative); Color Urine Yellow; Glucose Urine UA Negative (Negative); Ketones Urine Negative (Negative); Leukocyte Esterase Urine Negative (Negative); Nitrite Urine Negative (Negative); Protein Urine Negative (Negative); Specific Gravity Urine 1.029 (1.000-1.030); Urobilinogen Urine Negative (Negative); pH Urine 7.5 (4.5-7.5)
--- NOTE | 2020-06-09 11:12 | Magnetic Resonance Report ---
MR brain wo con HISTORY: 69 years-old Male Pt c/o tingling left side of body acute strokelike symptoms COMPARISON: Head CT, CTA head neck of same day TECHNIQUE: Multiplanar multisequence MRI of the brain was obtained without the use of IV contrast. FINDINGS: Fine Arts Instructor localizer images demonstrate no gross extracranial abnormality. There is no restricted diffusio n to suggest acute or subacute infarct. Midline structures including the corpus callosum, brainstem, optic chiasm, pituitary and pineal glands appear unremarkable the sagittal T1 series. No cerebellar t onsillar herniation. Degenerative changes are noted involving the imaged cervical spine. No pathologic blooming artifact on the T2 star series. There is no acute intracranial hemorrhage, mid line shift, abnormal extra-axial collection, hydrocephalus or intracranial mass. Age-related involuti onal changes. Moderate T2/FLAIR hyperintensities are noted throughout the white matter. Major arteria l flow voids at the level the skull base appear patent. Mastoid air cells are clear. Minimal mucosal thickening of the ethmoid air cells. The skull, orbits and soft tissues are unremarkable. IMPRESSION: 1. No acute intracranial abnormality, specifically there is no evidence of acute or subacute infarct. 2. Age-related involutional changes with moderate T2/FLAIR white matter hyperintensities suggestive o f chronic microvascular ischemic disease. ACT 112: Negative or not required by law. The above report was generated using voice recognition software. It may contain grammatical, syntax o r spelling errors. Electronically signed by: Jacques Ashraf M.D. 06/09/2020 11:11 AM
[2020-06-09] MEDS ORDERED: POLYETHYLENE (MIRALAX) 17 GM PACK PO PRN (13:07)
[2020-06-09] MEDS ORDERED: PHARMACIST DISCHARGE MED REC CONSULT PRN (13:07)
[2020-06-09] MEDS ORDERED: ACETAMINOPHEN 325 MG TAB PO PRN (13:07)
[2020-06-09] MEDS ORDERED: MAGNESIUM HYDROXIDE SUSP 30 ML UDC PO PRN (13:07)
[2020-06-09] MEDS ORDERED: ALUMINUM/MAGNESIUM SUSP 30 ML UDC PO PRN (13:07)
[2020-06-09] MEDS ORDERED: ONDANSETRON INJ 2 MG/ML 2 ML VIAL IV PRN (13:07)
[2020-06-09] MEDS ORDERED: ASTELIN - ORDER AWAITING ACTION SCH (16:00)
[2020-06-09] MEDS ORDERED: ATORVASTATIN 20 MG TAB PO SCH (16:30)
--- NOTE | 2020-06-09 17:04 | Communication Note ---
Date of Service: June 09, 2020 By CMS guidelines, a determination that the admission or continued stay is not medically necessary has been made by a member of the UR committee and loretta al for this hospital stay, therefore a Code 44 will be completed and the Inpatient admission will be changed to outpatient.
[2020-06-09] MEDS ORDERED: STROKE PATIENT DISCHARGE STA (17:05)
--- NOTE | 2020-06-09 17:57 | Discharge Summary ---
Date of Service June 09, 2020 Admission HPI Per Admitting Provider Jose Pedersen is a 69-year-old gentleman with a past medical history of hypertension, hyperlipidemia, peripheral neuropathy, and osteoarthritis who came into the ED this morning due to generally not feeling good and high blood pressure. He explains that around 4:30AM this morning he woke up due to increased pain in his shoulders--he has pain in shoulders at baseline but felt it was worse. He notes that he felt sluggish, had tingling over the top of his arm, and "didn't feel right". He decided to take his BP and found it to be 165/109. He waited a few minutes and took it again, at which point it was 181/110. He then decided to head to the ED. When asked about the numbness in his arm he explains that it is only over the top of his arm down to his forearm but does not involve the hand or fingers. As above, he does have arthritis, which he treats with OTC ibuprofen (up to 6 pills per day)--he complains of pain at baseline in multiple joints including shoulders, knees, hands. Says lately it has been worse due to the cold, damp weather. He denies vision changes, weakness of the face, slurred speech, weakness of his arms or legs, CP, palpitations, SOB, cough, n/v, diarrhea, constipation, abd pain, urinary symptoms. Admission Exam Per Admitting Provider Constitutional: WD/WN, vitals as above no acute distress Respiratory: normal respiratory effort, lungs clear to auscultation Cardiovascular: RRR, no murmur, no edema Heart Sounds: normal S1 and normal S2 Gastrointestinal (Abdomen): normal bowel sounds, soft, nontender, no hepatosplenomegaly Musculoskeletal: no cyanosis or clubbing, extremities motor strength 5/5 Skin: no rashes, warm and dry Neurologic: patellar DTR's 2+ bilat, sensation intact and PERRL, EOMI, accommodation nl, no face palsy, no dysarthria normal touch/pain/proprioception, CN's II-XI intact bilaterally, plantar reflexes intact bilaterally and moves all extremities; no focal motor deficits Speech / Cognition: normal speech Psychiatric: A+Ox3, euthymic affect Principal Diagnosis cervical radiculitis, hypertension Discharge Exam Constitutional WD/WN, vitals as above no acute distress Respiratory normal respiratory effort, lungs clear to auscultation Cardiovascular RRR, no murmur, no edema Heart Sounds: normal S1 and normal S2 Gastrointestinal (Abdomen) normal bowel sounds, soft, nontender, no hepatosplenomegaly Musculoskeletal no cyanosis or clubbing, extremities motor strength 5/5 Skin no rashes, warm and dry Neurologic patellar DTR's 2+ bilat, sensation intact and PERRL, EOMI, accommodation nl, no face palsy, no dysarthria CN's II-XI intact bilaterally Speech / Cognition: normal speech Psychiatric A+Ox3, euthymic affect Discharge Data Allergies Allergy/AdvReac Type Severity Reaction Status Date / Time No Known Drug Allergies Allergy Unknown Verified 06/09/20 07:41 pollen extracts Allergy Verified 06/09/20 07:41 Consultations 06/09/20 09:00 ED Decision to Admit Stat 06/09/20 13:07 Consult Case Management - Discharge Planning Routine Ordered Studies 06/09/20 06:59 CT angio head w con Stat CT angio neck with con Stat CT head/brain wo con Stat 06/09/20 07:31 MR brain wo con Stat Hospital Course (1) Arthritis: Jose Pedersen is a 69-year-old gentleman with a past medical history of hypertension, hyperlipidemia, peripheral neuropathy, and osteoarthritis who came into the ED this morning due to generally not feeling good and high blood pressure. He also complained of tingling in left arm. Admitted for TIA/stroke rule-out on 06/09. TIA/Stroke - Given patient's complaints of arm tingling and generalized sluggishness, stroke work-up ordered - EKG: Sinus rhythm with 1st degree AV block, incomplete RBBB - Head CT negative - Head/Neck CTA: 1. 60% luminal narrowing involves the V2 segment right vertebral artery at the level of C6 secondary to uncovertebral spurring. 2. origin of the right posterior cerebral artery. 3. Mild mixed plaque of the carotid bulbs results in less than 50% luminal narrowing. 4. Otherwise unremarkable CTA of the head and neck. - Brain MRI: 1. No acute intracranial abnormality, specifically there is no evidence of acute or subacute infarct. 2. Age-related involutional changes with moderate T2/FLAIR white matter hyperintensities suggestive of chronic microvascular ischemic disease. 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 - Prescribed diclofenac gel QID to decrease amount of ibuprofen patient takes daily Hypertension - Likely patient's BP spikes were secondary to pain - Would consider changing patient's metoprolol tartrate 12.5mg PO BID to metoprolol succinate, or possibly even change altogether to an EMMANUEL inhibitor for better heart attack/stroke risk reduction given signs of microvascular disease on Brain MRI--can be done as outpatient Hyperlipidemia - Patient on atorvastatin 20mg daily at home - Increased to 40mg daily for better stroke/heart attack risk reduction Peripheral neuropathy - Baseline peripheral neuropathy in bilateral lower extremities - No weakness or gait abnormalities GERD - Continue omeprazole 20mg PO daily FENGI: Heart healthy Dispo: Home - Self care Code: Full Code (2) Hypertension: (3) Hyperlipidemia: (4) Peripheral neuropathy: Total Time Total Time Spent Total Time Spent (In Minutes): >1hr Discharge Plan Discharge Items Patient Disposition: Home - Self-Care Reason For Visit: STROKE Discharge Diagnosis: cervical radiculitis, hypertension (see below) Activity: Resume your previous activity Non-emergency contact: Primary Care Provider Call non-emergency contact if: you have any medication questions and your symptoms worsen Follow-up/Referrals: Ab Chandler [Primary Care Provider] - Diet: Regular Addtl Attending Provider Instructions: cervical radiculitis -while the initial concern was that you might have been having a cerebrovascular event (arm tingling from lack of bloodflow to a part of your brain - as occurs in a TIA or stroke) fortunately after detailed review you appear to have been having symptoms from irritation/pinched nerve in your neck -stroke/TIA type numbness tends to be the whole arm/hand (or if it's just the hand, the whole hand) whereas your symptoms fit more with compression predominantly along one nerve root (most likely C6 by your description of where you were feeling the tinging) -the elevated blood pressure was almost certainly "effect, not cause" of the symptoms - when we see a "hypertensive crisis" they tend to fit into patterns that look truly stroke-like (which again, fortunately your pattern of numbness fits far more with wiring that comes from our neck than brain) or headache/blurred vision/slurred speech types of patterns (which you weren't showing at all). when someone has a lot of pain - like you were describing from your shoulders - that pain can make the blood pressure spike due to the pain/distress - we see this very commonly. given that you follow your blood pressure closely and are never that high, and given that your pressures came down fairly quickly (and especially since you did not show any of the c haracteristic patterns we see with a hypertensive crisis) it is far and away most likely that the blood pressure was up in response to the pain -i would work off the assumption that you likely have DJD/DDD in your neck much like you do in your low back; because your [facility] with [facility] and [facility], and because we don't need to do any interventions on your neck now, it makes more sense for Dr Chandler to order imaging (xrays and/or MRI) if the symptoms return or get worse since it will be more coordinated for your care for all of that imaging to be in their system. vascular disease -while fortunately today's events do not appear to have had anything to do with blocked blood vessels/stroke/TIA, the stroke workup done in the ER did show that you are a mateo who has a moderate amount of vascular disease already -- we'll want to do things to manage it more aggressively to keep you out of trouble with strokes (or heart attacks) in the future -what we saw was on the CT angiogram of your neck, your carotid arteries had some blockages (nothing worse than a 50% tightness, certainly nothing that would warrant seeing a vascular surgeon at this time) and your one vertebral artery showed about a 60% blockage (again a degree that generally is much more about managing with medications and lifestyle to keep you from worsening things, not a degree that needs attempts at surgical interventions); further the MRI showed a lot of little "pinprick" type changes that we'll see when someone has a degree of atherosclerosis -the biggest things we need to do are management of the reasons people clog arteries: blood pressure, cholesterol, sugar ---see below for blood pressure; in the very short term we'll leave your medications "as is" but over the next few weeks it will probably be of benefit for Dr Chandler to start to adjust things in ways that reduce risk of heart attacks and strokes ---cholesterol: as we discussed, not all cholesterol medicines "are created equal" -- some medicines will make your numbers look good, but others are really what do a better job of truly reducing occurrences of heart attacks and strokes -- and in line with that, medications like atorvastatin (lipitor) are one of the few that really not only reduce cholesterol but make a stroke or heart attack less likely. the "trick" is that the atorvastatin really only does that well once we're at 40mg or more of dosing - so even though your cholesterol numbers aren't back (unfortunately it looks like the lab was going to run them with a fasting sample from tomorrow morning) it really almost doesn't matter what your cholesterol numbers are --> knowing that you have the degree of atherosclerosis that we see on your imaging makes it very much worthwhile to change you from 20mg of atorvastatin up to 40mg. we usually don't see much increase in side effects with raising the dose of lipitor - typically if someone tolerates a lower dose they're just the same on a higher dose - and as we discussed, it's f ar more likely that the aches you've been feeling relate to your arthritis and the weather/time of year, far more than the lipitor (remember - we talked that usually statin related muscle aches are more like feeling like you have the flu but you don't have the flu -- more of a whole body ache than an amplification of aching joints you normally feel) ---sugar: much like the lipid panel, the lab was going to draw an A1c level in the morning; however, you noted that [facility] one not too long ago and you remembered it was "borderline." definitely review those numbers with Dr Chandler - because high sugars clogging arteries is one of the biggest problems we see as it relates to heart attacks and strokes. if you weren't too elevated though, for most people the biggest measures to take aren't medications - usually working to reduce or eliminate simple carbs (breads, pastas, potatoes, starches, sugars) is most of what it takes to reign in (or even fix) diabetes in a lot of people. DJD -as above noted, it appears that arthritis/DJD/degenerative disc disease (DDD) is the main problem that led to your episodes today - shoulder arthritis causing the pain that led to the blood pressure spike, neck arthritis that caused the pinched nerve leading to the tingling in your arm - and also seems to be a major factor that impacts your life on a day-to-day basis -as we discussed, "whole body" anti-inflammatories (taking alleve or ibuprofen) is a double edged sword - the benefit is that it helps reduce the arthritis pain and lets you get moving more; the harm is most worrisomely the way those medicines reduce production of a chemical called prostaglandin, which is a chemical our body uses to open up blood vessels when needed --> so on days that people take anti-inflammatories they'll be a bit more predisposed to heart attacks and strokes. so the balance is that keeping you moving is obviously medina for both quality and quantity of life, but that the more anti-inflammatories you need the more there is a risk of problems -a good tool to bring to the mix for arthritis would be diclofenac gel - it's a topical anti-inflammatory that you rub into the bad joints. it doesn't work well right away - you typically have to use it 3-4 times a day for several days before you feel it start to work - but then i would venture that maybe 75% of my patients note a pretty significant benefit from it. since it doesn't get into your system very much, there's not nearly the risks and problems that come with taking an anti-inflammatory pill. the idea would be if we can have you use the diclofenac gel as the "mainstay" for your arthritis pain, then maybe you will be able to cut down on how much anti-inflammatory you have to take - and work the delicate balance between the benefits of moving better/more freely/in less pain versus the risks on your blood vessels (and stomach) of taking them regularly. as we discussed, if you do see enough improvement with the diclofenac gel that it allows you for flexibility in what you're taking, the research so far would suggest that naproxen (alleve) is probably a little less risky than ibuprofen. (and of course tylenol would be the least risky, but if it's not helping then it's not worth it) -continue to follow up with Dr Chandler on what you can be doing for your arthritis as well --> looking at it as an ongoing problem to be managed will sometimes do better for people since it allows reassessment and changing in the plan over time as needs arise hypertension -as above outlined, and as we discussed, it really looks like the spike in blood pressure was from the pain, not a cause of anything with you. knowing that your pressures at home are monitored closely and you usually see about 130 systolic, it sounds like you're running under pretty good control now; your MRI would suggest that through your life there were probably periods where things weren't well controlled -beyond that, much as above with cholesterol medicines, different blood pressure medicines not only get us good numbers for blood pressure, but also have a greater reduction in risk of stroke or heart attack than others. -with you, we didn't want to make too many medication changes all at once, so we're leaving the change in blood pressure medicines to dr chandler since your numbers overall (this morning's spike excluded) show good control; however, it would likely be of benefit to either change the metoprolol from tartrate to succinate (in patients with heart disease the succinate has proven superior - so it's a bit of an extrapolation, but if we're sticking with the metoprolol it would probably be a worthwhile move) or possibly of greater benefit to change from the metoprolol entirely over to a class of medicines called "EMMANUEL inhibitors" - like lisinopril or ramipril - as these medicines tend to have a bigger reduction in risk of heart attacks and strokes than most other medicines, even if they don't "pound for pound" get quite as good of numbers. they do require some lab monitoring - but the large majority of people tolerate then just fine. -once you've gotten adapted to the above noted med changes and as you're following up with Dr Chandler, it would be worthwhile to talk to him about a shuffle of blood pressure medications Pending Studies at Discharge: No Stand-Alone Forms: My [employer], Smoking Cessation Medications and DC Order Prescriptions: New atorvastatin 40 mg tablet 40 mg PO PM Qty: 30 RF: 0 diclofenac sodium 1 % gel 2 g topical QID Qty: 100 RF: 2 Continued ascorbic acid (vitamin C) 500 mg capsule 1,000 mg PO DAILY RF: 0 aspirin 81 mg tablet,delayed release (DR/EC) 81 mg PO DAILY RF: 0 loratadine 10 mg capsule 10 mg PO DAILY RF: 0 multivitamin Tablet 1 tab PO DAILY RF: 0 omega-3 fatty acids 1,000 mg capsule 1,000 mg PO DAILY RF: 0 omeprazole 20 mg tablet,delayed release (DR/EC) 20 mg PO DAILY RF: 0 cholecalciferol (vitamin D3) 50 mcg (2,000 unit) tablet 2,000 units PO DAILY RF: 0 fluticasone propionate 50 mcg/actuation spray,suspension 2 spray intranasal DAILY Qty: 15.8 RF: 2 vitamin E mixed 1,000 unit capsule 1,000 units PO DAILY RF: 0 metoprolol tartrate 25 mg tablet 12.5 mg PO BID RF: 0 calcium carbonate 600 mg calcium (1,500 mg) tablet 600 mg PO 4XWK RF: 0 gabapentin 100 mg capsule 100 mg PO BID RF: 0 vitamin B complex Capsule 1 cap PO 3XWK RF: 0 azelastine 137 mcg (0.1 %) aerosol,spray 2 spray INTNAS BID Qty: 30 RF: 2 Discontinued atorvastatin 20 mg Tablet 20 mg PO QDD RF: 0 Discharge Orders: Discharge Order (Routine); Ordered 06/09/20 Ordered By: London Mckinley Admission Data Admit Date/Time: 06/09/20 10:51 Attending Provider: London Mckinley Admit Provider: London Mckinley Primary Care Provider: Ab Chandler Other Providers: Mark Stark Other Interventions: Discharge Summary Assessment (RN) Last Done: 06/09/20 16:20 Supervising Physician Co-Signing Physician Notes I personally examined the patient and verified all medina points of history and exam, discussed case, and agree with decision making with Dr Santana woke up w shoulder pain really bothering him. then checked BP and noted it to be high. then noted arm numbness - but on directed questioning while it's hard for him to really pinpoint the area of numbness (notes whole arm, but then also mostly motions to the front/side/middle) he is very clear that it did not ever involve his hand - zero hand sx. no other sx either. no headache no blurred vision no slurred speech. does note bad DJD type pain all the time - tried apap no help even at high dosing. alleve helps some but ibuprofen the most. feeling entirely better and back to baseline by the time i see him. vitals noted nad heent nc at mmm breathing unlabored no accessory muscles good effort skin no rashes no pallor or icterus no focal neuro deficits. labs and imaging reviewed. arm paresthesia - quite consistent w cervical radiculopathy, and with absolute lack of face/hand symptoms - really not at all c/w cerebrovascular disease. initial concern was on TIA/stroke - and this w/u was initiated in the ER - but once i was able to carefully review pt's situation personally - it was clear that there was nothing acutely at play in terms of cerebrovascular disease. sx improved and pt safe for home. discussed imaging neck - but wiht most of his care through [facility] and [facility], did not make sense to image here and further fragment care when no acute interventions were needed hypertension - also intially there was concern on HTN urgency. pt notes that he checks BP more or less daily and typically "it runs 130" -- with no charac teristic sx of hypertensive urgency, but with DJD pain really bothering him (notes it's rare that it wakes him from sleep) - almost certainly spike in BP was effect from shoulder pain not cause of any acute sx vascular disease - stroke w/u initiated by ER did yield that he likely has more vascular disease than he realized. in that respect aggressive risk reduction warranted -- but really as primary risk reduction because again - after further review, current episode did not appear cerebrovascular - rather was cervical. increase to 40mg atorvastatin, consider change metoprolol to succinate vs changing entirely to ACEi (discussed, but with other med changes, need for monitoring/follow up, and no acute urgency to change meds right now- felt it best to do this as outpt over coming few weeks). already on asa. DJD - extensive discussion of risks/benefits of NSAIDs as it relates to vascular disease - risks of taking include increased risk of vascular event, but if not taking and more immobile certainly that presents risks too --> discussed trial of diclofenac gel w hopes that it might be able to reduce overall NSAID use and balance risk as best as possible. close pcp f/u in this regard as well stable for home Resident Activity Tracking Resident Involvement: Resident Care Provided Care Provided: Adult Hospital Medicine
--- NOTE | 2020-06-09 19:05 | Billing Data ---
Date of Service June 09, 2020 Coding Level of Care Code Admit/DC Same Day >8hr Level 3
[2020-06-09] MEDS ORDERED: METOPROLOL TARTRATE 25 MG TAB PO SCH (21:00)
[2020-06-09] MEDS ORDERED: GABAPENTIN 100 MG CAP PO SCH (21:00)
[2020-06-10] MEDS ORDERED: ASCORBIC ACID 500 MG TAB PO SCH (09:00)
[2020-06-10] MEDS ORDERED: OMEGA-3 (PURIFIED FISH OIL) 1 GM CAP PO SCH (09:00)
[2020-06-10] MEDS ORDERED: ENOXAPARIN INJ 40 MG/0.4 ML SYR SQ SCH (09:00)
[2020-06-10] MEDS ORDERED: MULTIVITAMIN TAB PO SCH (09:00)
[2020-06-10] MEDS ORDERED: LORATADINE 10 MG TAB PO SCH (09:00)
[2020-06-10] MEDS ORDERED: CHOLECALCIFEROL 1,000 UNITS 25 MCG TAB PO SCH (09:00)
[2020-06-10] MEDS ORDERED: CALCIUM CARBONATE 1250MG TAB PO SCH (09:00)
[2020-06-10] MEDS ORDERED: ASPIRIN 81 MG ECTAB PO SCH (09:00)
[2020-06-10] MEDS ORDERED: PANTOprazole 40 MG TAB PO SCH (09:00)
[2020-06-10] MEDS ORDERED: TOCOPHERYL, DL-ALPHA 400 UNITS CAP PO SCH (09:00)
--- NOTE | 2020-06-10 09:46 | XCELERA ---
[id number]
[2020-06-11] MEDS ORDERED: VITAMIN B COMPLEX TAB PO SCH (09:00)
== END 2020-06-09 18:19 | disposition home or self-care (01) ==
LOC: ED 06:49 → 2S 10:51 → INTOOBSV 10:51 → 2S 11:56